=== PATIENT | female | born 2000 | race Hispanic/Latino ===

== ENCOUNTER 2023-02-21 17:28 | Day surgery (SDC) | payer BC ==
[2023-02-21 17:52] VITALS: BMI 38.3
[2023-02-21] MEDS ORDERED: hydrALAZINE 20 MG/ML VIAL SLOW IVP PRN (17:58)
[2023-02-21] MEDS ORDERED: Famotidine 20 MG TAB PO SCH (19:00)
[2023-02-21] MEDS ORDERED: Calcium Carbonate 500 MG ChewTAB PO SCH (19:00)
[2023-02-21 19:02] LABS: #Monocytes 0.6 10x3/uL (0.0-1.1); %Basophils 0.2 % (0.0-2.0); %Eosinophils 0.3 % (0.0-6.0); %Lymphocytes 11.3 % (18.0-47.0); %Monocytes 4.6 % (0.0-10.0); %Neutrophils 83.3 % (40.0-75.0); Hematocrit 32.8 % (34.9-44.5); Hemoglobin 11.2 g/dL (12.0-15.5); Mean Corpuscular HGB CONC 34.1 g/dL (32.0-36.0); Mean Corpuscular Volume 87.9 fl (81.6-98.3); Mean Platelet Volume 10.5 fl (7.4-10.4); Platelet Count 252 10x3/uL (150-450); RBC Distribution Width 13.2 % (11.5-14.5); Red Blood Cell (RBC) Count 3.73 10x6/uL (3.90-5.03)
[2023-02-21 19:19] LABS: ALT (SGPT) 20 U/L (8-55); AST (SGOT) 12 U/L (5-34); Alkaline Phosphatase 90 U/L (40-110); Anion Gap 13 mmol/L (10-20); BUN (Urea Nitrogen) 7 mg/dL (7.0-18.7); Bilirubin, Total 0.2 mg/dL (0.2-1.2); Calc. Creatinine Clearance 218 mL/min (70-130); Calcium 7.9 mg/dL (7.8-10.44); Carbon Dioxide 18 mmol/L (22-29); Chloride 111 mmol/L (98-107); Estimated GFR 133; Globulin 2.9 g/dL (2.4-3.5); Glucose 114 mg/dL (70-105); Potassium 3.7 mmol/L (3.5-5.1); Protein, Total 5.9 g/dL (6.0-8.3); Sodium 138 mmol/L (136-145)
[2023-02-21 20:31] LABS: Bilirubin Neg (Negative); Blood, Urine Negative (Negative); Clarity Clear (Clear); Glucose, Urine (Dipstick) Normal (Negative); Ketone, Urine Negative (Negative); Leukocyte Negative (Negative); Nitrite Negative (Negative); Protein, Urine (Dipstick) Negative (Neg-Trace); Urobilinogen Normal mg/dL (Less than 2)
[2023-02-21 20:53] LABS: CAUTI Indications for Culture Pregnancy; RBC/HPF 0-3 HPF (0-3); WBC/HPF 0-3 HPF (0-3)
[2023-02-21 20:54] LABS: Bacteria/HPF None Seen HPF (None Seen); Urine Culture Reflex Yes Yes
== END 2023-02-21 22:32 | disposition home or self-care (01) ==
LOC: CSHLD/OP 17:28
PROVIDERS: ATTEND Family Medicine
DX: O99.612 Diseases of the digestive system complicating pregnancy, second trimester (principal); K21.9 Gastro-esophageal reflux disease without esophagitis; O26.892 Other specified pregnancy related conditions, second trimester; R10.13 Epigastric pain; Z3A.25 25 weeks gestation of pregnancy
CPT/HCPCS: 80053; 81001; 83690; 85025; 87086; 99283

== ENCOUNTER 2023-05-27 09:53 | Inpatient (IN) | payer BC, OTHER ==
[2023-05-27] MEDS ORDERED: Lidocaine 1% (PF) 30 ML VIAL SC PRN (10:05)
[2023-05-27] MEDS ORDERED: HYDROcodone/Acetaminophen 5/325 mg Tablet PO PRN ×2 (10:05→19:17)
[2023-05-27] MEDS ORDERED: Ibuprofen 800 MG TAB PO PRN (10:05)
[2023-05-27] MEDS ORDERED: Promethazine HCl 25 MG/ML VIAL IM PRN ×3 (10:05→19:17)
[2023-05-27] MEDS ORDERED: Ondansetron PF 4 MG/2 ML Vial IVP PRN ×3 (10:05→19:17)
[2023-05-27] MEDS ORDERED: Misoprostol 200 MCG TAB PR PRN (10:05)
[2023-05-27] MEDS ORDERED: Acetaminophen 500 MG TAB PO PRN (10:05)
[2023-05-27] MEDS ORDERED: fentaNYL 50 mcg/mL 1 mL Vial SLOW IVP PRN (10:05)
[2023-05-27] MEDS ORDERED: hydrALAZINE 20 MG/ML VIAL SLOW IVP PRN ×2 (10:05→19:17)
[2023-05-27] MEDS ORDERED: Methylergonovine 0.2 MG/ML VIAL IM PRN (10:05)
[2023-05-27] MEDS ORDERED: Tranexamic Acid 1,000 MG/10 ML VIAL IVP PRN (10:05)
[2023-05-27] MEDS ORDERED: Diphenoxylate HCl/Atropine Tablet PO PRN (10:05)
[2023-05-27 10:10] VITALS: BMI 42.0
[2023-05-27] MEDS ORDERED: Oxytocin 30 units/NS 500 ML 500 ML IV SCH ×3 (10:15)
[2023-05-27] MEDS: Lactated Ringer's 1,000 ML IV SCH (10:30)
[2023-05-27 10:32] LABS: Hematocrit 33.3 % (34.9-44.5); Hemoglobin 10.9 g/dL (12.0-15.5); Mean Corpuscular HGB CONC 32.7 g/dL (32.0-36.0); Mean Corpuscular Hemoglobin 26.7 pg (27.0-33.0); Mean Corpuscular Volume 81.6 fl (81.6-98.3); Mean Platelet Volume 10.8 fl (7.4-10.4); Platelet Count 274 10x3/uL (150-450); RBC Distribution Width 13.2 % (11.5-14.5); Red Blood Cell (RBC) Count 4.08 10x6/uL (3.90-5.03); White Blood Cell (WBC) Count 8.2 10x3/uL (3.5-10.5)
[2023-05-27] MEDS ORDERED: fentaNYL/Ropivacaine Epidural 100 ML ONE (10:38)
[2023-05-27] MEDS ORDERED: Penicillin G Potassium 5 MILL.UNITS in Sodium Chloride 0.9% 100 ML IVPB SCH (11:00)
[2023-05-27 11:18] LABS: Syphilis Antibody Nonreactive (Nonreactive); Syphilis Antibody Index 0.04 S/CO (<1.00 Non-Reactive)
[2023-05-27 11:19] LABS: HBSAg Index 0.16 S/CO (0-0.99); Hep B Surf Ag - L&D Non-Reactive S/CO (NonReactive)
[2023-05-27] MEDS ORDERED: ePHEDrine Sulfate 50 MG/10 ML VIAL SLOW IVP PRN (12:42)
[2023-05-27] MEDS ORDERED: Moisturizing Cream (Eucerin) 113 GM JAR TOP PRN (12:42)
[2023-05-27] MEDS ORDERED: diphenhydrAMINE 50 MG/ML VIAL IVP PRN (12:42)
[2023-05-27] MEDS ORDERED: Naloxone HCl 0.4 mg/ml Vial IVP PRN ×2 (12:42)
[2023-05-27] MEDS ORDERED: Acetaminophen 325 MG TAB PO PRN (12:42)
[2023-05-27] MEDS ORDERED: Lactated Ringer's 500 ML IV PRN (12:42)
[2023-05-27] MEDS ORDERED: fentaNYL 2 mcg/Ropivacaine 0.2% Epidural 100 ML CADD EPIDURAL SCH (12:45)
[2023-05-27] MEDS ORDERED: Communication Order-Pharmacy FS SCH (12:45)
[2023-05-27] MEDS: Penicillin G 2.5 MILL.units 2.5 MILL.UNITS in Premix 1 BAG IVPB SCH (14:24)
[2023-05-27] MEDS ORDERED: Bupivacaine 0.25% HCL 30 ML VIAL ONE (14:28)
[2023-05-27] MEDS ORDERED: fentaNYL 50 mcg/mL 1 mL Vial ONE (15:11)
[2023-05-27] MEDS ORDERED: Dexmedetomidine 200 MCG/2 ML VIAL ONE (16:18)
[2023-05-27] MEDS ORDERED: Lanolin Ointment 7 GM TUBE TOP PRN (19:17)
[2023-05-27] MEDS ORDERED: Benzocaine-Menthol 82.5 ML CAN TOP PRN (19:17)
[2023-05-27] MEDS ORDERED: Boostrix 0.5 ML (Tdap) VIAL (>/=7 yrs of age) IM ONE (19:17)
[2023-05-27] MEDS ORDERED: Milk Of Magnesia 30 ML UDCUP PO PRN (19:17)
[2023-05-27] MEDS ORDERED: Bisacodyl 10 MG SUPP PR PRN (19:17)
[2023-05-27] MEDS ORDERED: diphenhydrAMINE 25 MG CAP PO PRN (19:17)
[2023-05-27] MEDS: Docusate 100 MG CAP PO SCH (21:58)
[2023-05-27] MEDS ORDERED: Ibuprofen 800 MG TAB PO SCH (22:00)
[2023-05-28] MEDS: Ibuprofen 800 MG TAB PO SCH ×3 (02:00→16:40)
[2023-05-28] MEDS: Lactated Ringer's 1,000 ML IV SCH ×2 (06:12→10:15)
[2023-05-28] MEDS: Penicillin G 2.5 MILL.units 2.5 MILL.UNITS in Premix 1 BAG IVPB SCH ×5 (06:13→16:21)
[2023-05-28] MEDS ORDERED: Prenatal Vitamin 1 TAB PO SCH (09:00)
[2023-05-28] MEDS: Docusate 100 MG CAP PO SCH (09:22)
[2023-05-28] MEDS: Ferrous Sulfate 325 MG TAB PO SCH ×2 (11:59→16:21)
[2023-05-28 16:07] VITALS: BP 113/68; TEMP 97.6
== END 2023-05-28 18:55 | disposition home or self-care (01) | DRG 807 ==
LOC: CSHLD 09:53 → UNDODISIN 18:18 → CSHPP 20:13
PROVIDERS: ADMIT Family Medicine; ATTEND Family Medicine
PROC: 10E0XZZ Delivery of Products of Conception, External Approach (ICD-10-PCS; principal; 2023-05-27)
PROC: 10907ZC Drainage of Amniotic Fluid, Therapeutic from Products of Conception, Via Natural or Artificial Opening (ICD-10-PCS; 2023-05-27)
DX: O99.824 Streptococcus B carrier state complicating childbirth (principal); Z37.0 Single live birth; Z3A.38 38 weeks gestation of pregnancy
CPT/HCPCS: 51702; 85027; 86780; 86850; 86900; 86901; 87340; J2540; J2590; J3490; J7120; S0020

== ENCOUNTER 2023-06-11 00:50 | Emergency (ER) | payer BC, OTHER ==
[2023-06-11] MEDS ORDERED: Lidocaine 2% Viscous Solution 10 ML, Aluminum & Magnesium Hydroxide 30 ML SSW SCH (01:45)
[2023-06-11 01:53] LABS: #Eosinphils 0.1 10x3/uL (0.0-0.5); #Monocytes 0.7 10x3/uL (0.0-1.1); %Basophils 0.3 % (0.0-2.0); %Eosinophils 0.7 % (0.0-6.0); %Lymphocytes 12.7 % (18.0-47.0); %Monocytes 4.6 % (0.0-10.0); %Neutrophils 81.4 % (40.0-75.0); Hematocrit 43.2 % (34.9-44.5); Hemoglobin 13.6 g/dL (12.0-15.5); Mean Corpuscular HGB CONC 31.5 g/dL (32.0-36.0); Mean Corpuscular Hemoglobin 25.9 pg (27.0-33.0); Mean Corpuscular Volume 82.3 fl (81.6-98.3); Mean Platelet Volume 10.9 fl (7.4-10.4); Platelet Count 322 10x3/uL (150-450); Red Blood Cell (RBC) Count 5.25 10x6/uL (3.90-5.03); White Blood Cell (WBC) Count 14.7 10x3/uL (3.5-10.5)
[2023-06-11 02:01] LABS: ALT (SGPT) 52 U/L (8-55); AST (SGOT) 77 U/L (5-34); Albumin 3.6 g/dL (3.5-5.0); Alkaline Phosphatase 149 U/L (40-110); Anion Gap 16 mmol/L (10-20); BUN (Urea Nitrogen) 15 mg/dL (7.0-18.7); Bilirubin, Total 0.8 mg/dL (0.2-1.2); Calc. Creatinine Clearance 0 mL/min (70-130); Calcium 8.8 mg/dL (7.8-10.44); Carbon Dioxide 24 mmol/L (22-29); Chloride 106 mmol/L (98-107); Estimated GFR 103; Globulin 3.4 g/dL (2.4-3.5); Glucose 108 mg/dL (70-105); Lipase 40 U/L (8-78); Potassium 3.8 mmol/L (3.5-5.1); Sodium 142 mmol/L (136-145)
[2023-06-11 02:03] LABS: Troponin I Less than 0.010 ng/mL (< 0.028)
[2023-06-11 02:28] LABS: Bilirubin Neg (Negative); Blood, Urine 250 (Negative); Clarity Slightly Cloudy (Clear); Glucose, Urine (Dipstick) Normal (Negative); Ketone, Urine Negative (Negative); Leukocyte 100 (Negative); Nitrite Negative (Negative); Protein, Urine (Dipstick) 15 mg/dl (Neg-Trace); pH, Urine 6.5 (5.0-9.0)
[2023-06-11 03:08] LABS: Squamous Epithelial 0-3 HPF (0-3)
[2023-06-11 03:10] LABS: Bacteria/HPF None Seen HPF (None Seen); CAUTI Indications for Culture Pelvic or flank pain; Transitional Epithelial 0-3 HPF (None Seen)
[2023-06-11 03:13] LABS: Urine Culture Reflex No No
[2023-06-11] MEDS ORDERED: Iopamidol 370 76% 100 ML VIAL ONE (10:13)
== END 2023-06-11 04:11 | disposition home or self-care (01) ==
LOC: CSHERS 00:50
DX: R07.9 Chest pain, unspecified (principal); R10.13 Epigastric pain
CPT/HCPCS: 71045; 71275; 80053; 81001; 83690; 84443; 84484; 85025; 85379; 86140; 87086; 93005; Q9967